=== PATIENT | male | born 1985 | race Caucasian/White ===

== ENCOUNTER 2017-03-14 17:26 | Emergency (ER) | payer BC ==
[2017-03-14] MEDS ORDERED: LORazepam 0.5 MG Tab PO ONE (19:32)
--- NOTE | 2017-03-14 19:39 | EDM.PDOC ---
ED HPI GENERAL MEDICAL PROBLEM - General Chief Complaint: Behavioral/Psych Stated Complaint: ANXIETY ISSUES, [id number] Time Seen by Provider: 03/14/17 19:25 Source of Information: Reports: Patient History Limitations: Reports: No limitations - History of Present Illness INITIAL COMMENTS - FREE TEXT/NARRATIVE: This 31 yo male patient reports to the ED from the [facility] due to abdominal pain. The patient reports he has been having abdominal pain over the past 2 months, but it has been getting worse. The patient reports he does have an appointment at the [facility] tomorrow, but did not want to wait any longer. The patient called the clinic and was advised to come to the ED. The patient reports he recently has been from his , has not been eating well and has not been sleeping well over the past several months. Onset: gradual Duration: Week(s): (8) Location: Reports: abdomen Quality: Reports: Ache, Dull Severity: moderate Improves with: Reports: None Worsens with: Reports: None Context: Reports: Other Abdominal Pain Score (Numeric/FACES): 8 - Related Data Allergies Allergy/AdvReac Type Severity Reaction Status Date / Time No Known Allergies Allergy Verified 03/14/17 18:06 Home Meds: Home Meds . 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 ED EXAM, GENERAL - Physical Exam Exam: See Below Exam Limited By: No limitations General Appearance: alert, WD/WN, anxious, moderate distress Eye Exam: bilateral eye: EOMI, normal inspection, PERRL Ears: normal external exam, normal canal, hearing grossly normal, normal TMs Nose: normal inspection, normal mucosa, no blood Throat/Mouth: Normal inspection, Normal lips, Normal teeth, Normal gums, Normal oropharynx, Normal voice, No airway compromise Head: atraumatic, normocephalic Neck: normal inspection, supple, non-tender, full range of motion Respiratory/Chest: no respiratory distress, lungs clear, normal breath sounds, no accessory muscle use, chest non-tender Cardiovascular: normal peripheral pulses, regular rate, rhythm, no edema, no gallop, no JVD, no murmur, no rub GI/Abdominal: normal bowel sounds, soft, no organomegaly, no distention, no abnormal bruit, no mass, tender (diffuse upper abdominal pain) (Male) Exam: Deferred Rectal (Males) Exam: Deferred Back Exam: normal inspection, full range of motion, NT Extremities: normal inspection, normal range of motion, non-tender, normal capillary refill, no pedal edema Neurological: alert, oriented, CN II-XII intact, normal cognition, normal gait, normal reflexes, no motor/sensory deficits Psychiatric: normal affect, normal mood Skin Exam: Warm, Dry, Intact, Normal color, No rash Lymphatic: no adenopathy Course - Vital Signs Last Recorded V/S: Last Vital Signs Temp 37.0 C 03/14/17 17:59 Pulse 82 03/14/17 17:59 Resp 14 03/14/17 17:59 BP 135/52 L 03/14/17 17:59 Pulse Ox 100 03/14/17 17:59 - Orders/Labs/Meds Labs: Laboratory Tests 03/14/17 03/14/17 Range/Units 19:54 19:54 WBC 9.1 (5.0-10.0) 10^3/uL RBC 5.03 (4.6-6.2) 10^6/uL Hgb 15.3 (14.0-18.0) g/dL Hct 44.1 (40.0-54.0) % MCV 87.7 (80-100) fL MCH 30.4 (27.0-34.0) pg MCHC 34.7 (33.0-35.0) g/dL Plt Count 203 (150-450) 10^3/uL Neut % (Auto) 72.9 (42.2-75.2) % Lymph % (Auto) 18.9 L (20.5-50.1) % Jack % (Auto) 7.1 (2-8) % Eos % (Auto) 0.8 L (1.0-3.0) % Baso % (Auto) 0.3 (0.0-1.0) % Sodium 136 (135-145) mmol/L Potassium 3.5 L (3.6-5.0) mmol/L Chloride 102 (101-111) mmol/L Carbon Dioxide 26.0 (21.0-31.0) mmol/L Anion Gap 11.5 BUN 12 (7-18) mg/dL Creatinine 1.0 (0.6-1.3) mg/dL Est Cr Clr Drug Dosing 117.48 mL/min Estimated GFR (MDRD) > 60 BUN/Creatinine Ratio 12.00 Glucose 102 (74-105) mg/dL Calcium 9.3 (8.4-10.2) mg/dl Magnesium 2.0 (1.8-2.5) mg/dL Total Bilirubin 0.7 (0.2-1.0) mg/dL AST 29 (10-42) IU/L ALT 35 (10-60) IU/L Alkaline Phosphatase 61 (42-121) IU/L Total Protein 7.4 (6.7-8.2) g/dl Albumin 4.7 (3.2-5.5) g/dl Globulin 2.7 Albumin/Globulin Ratio 1.74 Amylase 40 (28-100) U/L Lipase 19 L (22-51) U/L Meds: Medications Discontinued Medications Generic Name Dose Route Start Last Admin Trade Name Freq PRN Reason Stop Dose Admin Al Hydroxide/Mg Hydroxide 30 ml 03/14/17 20:39 03/14/17 20:44 Gi Cocktail PO 03/14/17 20:40 30 ml ONETIME ONE Administration Lorazepam 0.5 mg 03/14/17 19:32 03/14/17 19:38 Ativan PO 03/14/17 19:33 0.5 mg ONETIME ONE Administration Omeprazole 20 mg 03/14/17 20:39 03/14/17 20:44 Omeprazole PO 03/14/17 20:40 20 mg ONETIME ONE Administration Departure - Departure Time of Disposition: 21:01 Disposition: Home, Self-Care 01 Condition: fair Clinical Impression: PUD (peptic ulcer disease) Instructions: Peptic Ulcer, [id number] Forms: ED Department Discharge Care Plan Goals: The patient was advised of the examination and lab results during the visit. The patient was given a dose of Ativan, a GI cocktail and a dose of Omeprazole while in the ED. The patient was discharged with a script for Omeprazole (20 mg ) #40 to take 1 by mouth 2 times per day 30 minutes prior to meals. If the patient has any additional symptoms or concerns, the patient should follow-up with his primary care facility or return to the emergency department.
[2017-03-14 20:33] LABS: CHLORIDE,CL 102 mmol/L (101-111); SODIUM,NA 136 mmol/L (135-145)
[2017-03-14] MEDS ORDERED: GI Cocktail Oral Solution 30 ML PO ONE (20:39)
[2017-03-14] MEDS ORDERED: Omeprazole 20 MG Cap.CR PO ONE (20:39)
[2017-03-14 22:01] VITALS: BP 132/78
== END 2017-03-14 21:15 | disposition home or self-care (01) ==
LOC: DL.ED 17:26
DX: K27.9 Peptic ulcer, site unspecified, unspecified as acute or chronic, without hemorrhage or perforation (principal)
CPT/HCPCS: 36415; 80053; 82150; 83690; 83735; 85025; 99283; A9270

== ENCOUNTER 2017-04-10 22:57 | Emergency (ER) | payer BC ==
[2017-04-10 23:43] VITALS: BP 126/81
== END 2017-04-11 01:14 | disposition left against medical advice (07) ==
LOC: DL.ED 22:57
DX: Z53.21 Procedure and treatment not carried out due to patient leaving prior to being seen by health care provider (principal)

== ENCOUNTER 2019-03-05 13:46 | Emergency (ER) | payer BC ==
[2019-03-05 14:11] VITALS: BP 140/82
[2019-03-05] MEDS ORDERED: LORazepam 0.5 MG Tab PO ONE (14:12)
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
== END 2019-03-05 14:36 | disposition home or self-care (01) ==
LOC: DL.ED 13:46
DX: F41.9 Anxiety disorder, unspecified (principal); F17.210 Nicotine dependence, cigarettes, uncomplicated; Z71.1 Person with feared health complaint in whom no diagnosis is made
CPT/HCPCS: 80305; 99281; A9270

== ENCOUNTER 2019-11-17 11:33 | Emergency (ER) | payer BC | END 2019-11-17 13:15 | disposition left against medical advice (07) | LOC: DL.ED 11:33 | DX: Z53.21 Procedure and treatment not carried out due to patient leaving prior to being seen by health care provider (principal) ==

== ENCOUNTER 2022-09-20 10:48 | Emergency (ER) | payer BC | END 2022-09-20 11:00 | disposition left against medical advice (07) | LOC: DL.ED 10:48 | DX: Z53.21 Procedure and treatment not carried out due to patient leaving prior to being seen by health care provider (principal) ==

== ENCOUNTER 2023-07-16 16:24 | Emergency (ER) | payer BC ==
[2023-07-16] MEDS ORDERED: Sodium Chloride 0.9% 10 ML Syringe FLUSH PRN (16:38)
[2023-07-16 17:02] LABS: BASOPHILS PERCENT AUTO 0.1 % (0.0-1.0); EOSINOPHILS PERCENT AUTO 0.4 % (1.0-3.0); HEMATOCRIT 41.2 % (40.0-54.0); HEMOGLOBIN 14.4 g/dL (14.0-18.0); LYMPHOCYTES PERCENT AUTO 23.3 % (20.5-50.1); MEAN CORPUSCULAR VOLUME 88.8 fL (80-100); MONOCYTES PERCENT AUTO 8.7 % (2-8); NEUTROPHILS PERCENT AUTO 67.5 % (42.2-75.2); PLATELET COUNT,PLT 198 10^3/uL (150-450); RED BLOOD CELL COUNT 4.64 10^6/uL (4.6-6.2); WHITE BLOOD CELL COUNT,WBC 6.7 10^3/uL (5.0-10.0)
[2023-07-16 17:25] VITALS: BP 142/91; PULSE 65
[2023-07-16 17:27] LABS: A/G RATIO 1.3; ALANINE AMINOTRANSFERASE,ALT 26 U/L (16-63); ALBUMIN 4.2 g/dL (3.4-5.0); ALKALINE PHOSPHATASE 68 U/L (46-116); ANION GAP 16.4 mEq/L (7-13); ASPARTATE AMNIOTRANSFERASE,AST 22 U/L (15-37); BILIRUBIN TOTAL 0.5 mg/dL (0.2-1.0); BLOOD UREA NITROGEN,BUN 10 mg/dL (7-18); BUN/CREATININE RATIO 10.6 (No establ ref range); C-REACTIVE PROTEIN < 0.05 ng/dL (<=0.30); CALCIUM 9.1 mg/dL (8.5-10.1); CARBON DIOXIDE,CO2 25 mmol/L (21-32); CHLORIDE,CL 103 mmol/L (98-107); CREATININE 0.94 mg/dL (0.70-1.30); ESTIMATED GFR 107 mL/min (>=60); GLUCOSE RANDOM 107 mg/dL (70-99); MAGNESIUM 1.9 mg/dL (1.8-2.4); POTASSIUM,K 3.4 mmol/L (3.5-5.1); PROTEIN TOTAL,TP 7.5 g/dL (6.4-8.2); SODIUM,NA 141 mmol/L (136-145); TSH ULTRASENSITIVE 1.77 uIU/mL (0.36-3.74)
[2023-07-16] MEDS ORDERED: Dexamethasone 4 MG/ML SDV IVPUSH ONE (17:32)
== END 2023-07-16 18:15 | disposition home or self-care (01) ==
LOC: DL.ED 16:24
DX: R55 Syncope and collapse (principal)
CPT/HCPCS: 36415; 80053; 83735; 84443; 84484; 85025; 86140; 93005; 93010; 96374; 99284; 99284-25; J1100; J3490